=== PATIENT | male | born 2000 | race Caucasian/White ===

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

== ENCOUNTER → 2024-02-29 | Outpatient (REF) | payer OTHER ==
[2024-02-29 13:50] LABS: SEMEN APPEARANCE OPAQUE (OPAQUE); SEMEN VISCOSITY LIQUID (LIQUID); SEMEN VOLUME 2.8 ml (2.0-5.0); SEMEN pH 8.5 (7.0-8.0)
[2024-02-29 13:51] LABS: SPERM CONCENTRATION 34.5 M/ml (>=15.0); WBC CONCENTRATION <=1 M/ml (<=1 M/ml)
== END ==
LOC: M LAB REF 12:57
PROVIDERS: ATTEND Physician Assistant
DX: Z31.41 Encounter for fertility testing (principal)

== ENCOUNTER → 2024-04-06 | Outpatient (REF) | payer OTHER ==
[2024-04-06 13:29] LABS: SEMEN APPEARANCE OPAQUE (OPAQUE); SEMEN VISCOSITY LIQUID (LIQUID); SEMEN VOLUME 2.3 ml (2.0-5.0); SPERM CONCENTRATION 25.6 M/ml (>=15.0); WBC CONCENTRATION >1 M/ml (<=1 M/ml)
== END ==
LOC: M LAB REF 13:02
PROVIDERS: ATTEND Physician Assistant
DX: Z30.8 Encounter for other contraceptive management (principal)

== ENCOUNTER 2024-07-27 11:52 | Emergency (ER) | payer OTHER ==
[~2024-07-27] VITALS: Ht 200.7 cm; Wt 114.7 kg
[2024-07-27] MEDS ORDERED: muscle relaxer PO (12:25)
[2024-07-27 13:44] LABS: HEMATOCRIT 44.3 % (42.0-52.0); HEMOGLOBIN 15.1 g/dl (13.5-17.5); MEAN CORPUSCULAR HEMOGLOBIN 29.5 pg (27.0-33.0); MEAN CORPUSCULAR HGB CONC 34.1 g/dl (32.0-36.5); MEAN CORPUSCULAR VOLUME 86.7 fl (80.0-96.0); PLATELET COUNT, AUTOMATED 217 10^3/uL (150-450); RED BLOOD COUNT 5.11 10^6/uL (4.30-6.10); WHITE BLOOD COUNT 6.8 10^3/uL (4.0-10.0)
[2024-07-27 14:08] LABS: Trichomonas vaginalis (AMP) NOT DETECTED (NEGATIVE)
[2024-07-27 14:12] LABS: BLOOD UREA NITROGEN 17 MG/DL (9-23); CALCIUM LEVEL 9.9 MG/DL (8.5-10.1); CARBON DIOXIDE LEVEL 29 MMOL/L (20-31); CHLORIDE LEVEL 104 MMOL/L (98-107); CREATININE FOR GFR 0.91 MG/DL (0.70-1.30); GLOMERULAR FILTRATION RATE > 60.0 (>60); GLUCOSE, FASTING 90 MG/DL (60-100); POTASSIUM SERUM 3.9 MMOL/L (3.5-5.1); SODIUM LEVEL 139 MMOL/L (136-145)
[2024-07-27 14:32] LABS: GC DNA AMPLIFICATION NEGATIVE (NEGATIVE)
[2024-07-27 15:01] VITALS: BP 132/80; TEMP 97.1; O2SAT 100
== END 2024-07-27 15:02 | disposition home or self-care (01) ==
LOC: M ED 11:52
DX: R31.9 Hematuria, unspecified (principal); M54.50 Low back pain, unspecified; Z79.899 Other long term (current) drug therapy

== ENCOUNTER → 2024-08-25 | Outpatient (REF) | payer OTHER ==
[~2024-08-25] MED LIST: muscle relaxer PO
[2024-08-25 13:13] LABS: APPEARANCE, URINE CLEAR (CLEAR); BACTERIA, URINE AUTO NEGATIVE (NEGATIVE); BILIRUBIN, URINE AUTO NEGATIVE (NEGATIVE); BLOOD, URINE BLOOD 1+ (NEGATIVE); COLOR, URINE YELLOW (YELLOW); GLUCOSE, URINE (UA) AUTO NEGATIVE (NEGATIVE); KETONE, URINE AUTO NEGATIVE (NEGATIVE); LEUKOCYTE ESTERASE, URINE AUTO NEGATIVE (NEGATIVE); MUCUS, URINE SMALL (NEGATIVE); NITRITE, URINE AUTO NEGATIVE (NEGATIVE); PROTEIN, URINE AUTO NEGATIVE (NEGATIVE); RBC, URINE AUTO 2 /HPF (0-3); SPECIFIC GRAVITY URINE AUTO 1.021 (1.002-1.035); SQUAMOUS EPITHELIAL CELL UR AU 1 /HPF (0-6); UROBILINOGEN, URINE AUTO 0.2 mg/dL (0.0-2.0); WBC, URINE AUTO 0 /HPF (0-3)
== END ==
LOC: M SMT 12:31
PROVIDERS: ATTEND Nurse Practitioner Family
DX: R31.9 Hematuria, unspecified (principal)

== ENCOUNTER → 2025-01-12 | Outpatient (REF) | LOC: M PLAIMG 08:25 | PROVIDERS: ATTEND Internal Medicine | DX: R06.02 Shortness of breath (principal); R07.9 Chest pain, unspecified ==